=== PATIENT | female | born 1960 | race Caucasian/White ===

== ENCOUNTER 2016-09-13 05:40 | Emergency (ER) | payer OTHER ==
--- NOTE | ~2016-09-13 | CR181 ---
[facility] A Service of [facility] & [facility] RADIOLOGY TEXT RESULTS PATIENT: YAYA DE LEÓN LOCATION: [facility] : 58 UNIT #: [id number] AGE: [address]: Gaetano Silver MD SEX: F ORDER DR: [id number] [facility] [address] [place], [place] [address] [id number] E MR#: [id number] Acc #: [id number] NAME: YAYA DE LEÓN. : 1960 SEX: F STUDY DATE/TIME: 09/13/2016 5:45 UNIT: [facility] ROOM: STUDY DESCRIPTION: CR Lumbar Spine 2 or 3 Views Attending Physician: Gaetano Silver M.D. Ordering Physician: Jesus Pan M.D. Primary Care Physician: Geni Torres M.D. MEDICAL IMAGING REPORT This report is preliminary unless electronic signature is present EXAM Lumbar spine, 3 views COMPARISON None. INDICATION 56-year-old female with low back pain for 1 day. FINDINGS There is thoracolumbar levoscoliosis centered at the thoracolumbar junction. There is bulky degenerative facet disease at multiple levels of the lumbar spine including L2-3 through L4-5. Bones are otherwise anatomically aligned. No evidence of acute fracture. IMPRESSION 1. No acute fracture or subluxation of the lumbar spine. 2. Thoracolumbar levoscoliosis which is mild. 3. Bulky multilevel degenerative facet disease of the lumbar spine. Dictated by... Demond Khalil M.D. THIS IS AN ELECTRONICALLY VERIFIED REPORT Demond Khalil M.D. at 09/17/2016 11:09 AM CAMMIE/emmanuel TD: 09/13/2016 09:43 JOB #: [id number] MEDICAL IMAGING REPORT COPY
== END 2016-09-13 06:26 | disposition home or self-care (01) ==
LOC: CED 05:40
DX: S39.012A Strain of muscle, fascia and tendon of lower back, initial encounter (principal); Z98.890 Other specified postprocedural states; X58.XXXA Exposure to other specified factors, initial encounter; Y92.9 Unspecified place or not applicable
CPT/HCPCS: 72100; 96372; 99283; J2270; J2550